=== PATIENT | male | born 1990 | race American Indian/Alaskan Native ===

== ENCOUNTER 2021-02-05 14:57 | Emergency (ER) | payer SELFPAY ==
[2021-02-05 17:51] VITALS: BP 130/70
--- NOTE | 2021-02-05 21:14 | Emergency Department Report ---
ED Abdominal Pain HPI - General Chief Complaint: Abdominal Pain Stated Complaint: ABD PAIN Time Seen by Provider: 02/05/21 20:11 Source: patient Mode of arrival: Ambulatory Limitations: No Limitations - History of Present Illness Initial Comments: Patient 30-year-old -[place] male who presents for left flank pain x1 week. Symptoms described as 5/10 pain sharp achy intermittent, symptoms are exacerbated by movement palpation. Symptoms are relieved by nothing. Patient denies vomiting there is minimal nausea, no fever no chills, patient denies h ematuria frequency urgency or dysuria. Patient is tolerating p.o. intake at this time without vomiting. MD Complaint: flank pain Severity scale (0 -10): 4 - Related Data Previous Rx's Medication Instructions Recorded Last Taken Type Naproxen 500 mg PO BID PRN #30 tablet 02/06/21 Unknown Rx Allergies Allergy/AdvReac Type Severity Reaction Status Date / Time No Known Allergies Allergy Unverified 02/05/21 17:47 ED Review of Systems ROS: Stated complaint: ABD PAIN Other details as noted in HPI Constitutional: denies: chills, fever Eyes: denies: eye pain, eye discharge, vision change ENT: denies: ear pain, throat pain Respiratory: denies: cough, shortness of breath, wheezing Cardiovascular: denies: chest pain, palpitations Endocrine: no symptoms reported Gastrointestinal: abdominal pain, nausea. denies: vomiting, diarrhea, constipation, melena Genitourinary: denies: urgency, dysuria, frequency, hematuria, discharge Musculoskeletal: back pain Skin: denies: rash, lesions Neurological: denies: headache, weakness, paresthesias Psychiatric: denies: anxiety, depression Hematological/Lymphatic: denies: easy bleeding, easy bruising ED Past Medical Hx - Past Medical History Previous Medical History?: No - Surgical History Past Surgical History?: No - Medications Home Medications: Home Medications Medication Instructions Recorded Confirmed Last Taken Type Naproxen 500 mg PO BID PRN #30 tablet 02/06/21 Unknown Rx ED Physical Exam - General Limitations: No Limitations General appearance: alert, in no apparent distress - Head Head exam: Present: atraumatic, normocephalic - Eye Eye exam: Present: normal appearance, EOMI Pupils: Present: normal accommodation - ENT ENT exam: Present: mucous membranes moist - Neck Neck exam: Present: normal inspection, full ROM. Absent: tenderness - Respiratory Respiratory exam: Present: normal lung sounds bilaterally. Absent: respiratory distress, wheezes, stridor, chest wall tenderness - Cardiovascular Cardiovascular Exam: Present: regular rate, normal rhythm, normal heart sounds. Absent: systolic murmur, diastolic murmur, rubs, gallop - GI/Abdominal GI/Abdominal exam: Present: soft, tenderness (left latera flank ), normal bowel sounds. Absent: distended, guarding, rebound, rigid, bruit, hernia - Expanded GI/Abdominal Exam Expanded GI/Abdominal exam: Absent: psoas sign, obturator sign, heel tap sign, Grajeda's sign, Rovsing's sign, tenderness at Mcburney's Point, ascites - Rectal Rectal exam: Present: deferred - Extremities Exam Extremities exam: Present: normal inspection, full ROM. Absent: tenderness - Back Exam Back exam: Present: normal inspection, full ROM, CVA tenderness (L). Absent: vertebral tenderness - Neurological Exam Neurological exam: Present: alert, oriented X3 - Psychiatric Psychiatric exam: Present: normal affect, normal mood - Skin Skin exam: Present: warm, dry, intact, normal color. Absent: rash ED Course Vital Signs 02/05/21 17:48 Temperature 98.4 F Pulse Rate 83 Respiratory 18 Rate Blood Pressure 130/70 [Right] O2 Sat by Pulse 100 Oximetry ED Medical Decision Making - Lab Data Result diagrams: 02/05/21 21:27 02/05/21 21:27 ABDOMEN 1 VIEW, 02/05/2021 INDICATION / CLINICAL INFORMATION: Abdominal pain COMPARISON: None. FINDINGS: TUBES / LINES: None. BOWEL GAS PATTERN: Bowel gas pattern is nonobstructive. ADDITIONAL FINDINGS: No significant additional findings. IMPRESSION: 1. No radiographic evidence of acute intra-abdominal process. Signer Name: Donna Richard MD Signed: 02/05/2021 11:55 PM Workstation Name: [id number] Transcribed By: EB Dictated By: Donna Richard MD Electronically Authenticated By: Donna Richard MD Signed Date/Time: 02/05/212354 DD/ 53 TD/TT: - Radiology Data Radiology results: report reviewed, image reviewed ABDOMEN 1 VIEW, 02/05/2021 INDICATION / CLINICAL INFORMATION: Abdominal pain COMPARISON: None. FINDINGS: TUBES / LINES: None. BOWEL GAS PATTERN: Bowel gas pattern is nonobstructive. ADDITIONAL FINDINGS: No significant additional findings. IMPRESSION: 1. No radiographic evidence of acute intra-abdominal process. Signer Name: Donna Richard MD Signed: 02/05/2021 11:55 PM Workstation Name: [id number] Transcribed By: EB Dictated By: Donna Richard MD Electronically Authenticated By: Donna Richard MD Signed Date/Time: 02/05/212354 DD/ 53 TD/TT: - Medical Decision Making KUB no obstruction normal gas pattern, labs normal, ua normal, pt advises pain improved, plan: dc to home, continue to hydrate, follow up with primary care doctor in 2-3 days. Critical care attestation.: If time is entered above; I have spent that time in minutes in the direct care of this critically ill patient, excluding procedure time. ED Disposition Clinical Impression: Abdominal pain Qualifiers: Abdominal location: left upper quadrant Qualified Code(s): R10.12 - Left upper quadrant pain Disposition: DC-01 TO HOME OR SELFCARE Is pt being admited?: No Does the pt Need Aspirin: No Condition: Stable Instructions: Abdominal Pain, Adult, [id number] Additional Instructions: take medications as prescribed, hydrate as directed, follow up with your doctor in 2-3 days. Prescriptions: Naproxen 500 mg PO BID PRN #30 tablet PRN Reason: pain Referrals: LONG ULLOA MD [Staff Physician] - 3-5 Days Forms: Work/School Release Form(ED) Time of Disposition: 00:33
[2021-02-05 21:38] LABS: Basophils % (Auto) 0.8 % (0.0-1.8); Eosinophils # (Auto) 0.2 K/mm3 (0.0-0.4); Eosinophils % (Auto) 3.1 % (0.0-4.3); Hematocrit 49.4 % (35.5-45.6); Hemoglobin 16.7 gm/dl (11.8-15.2); Lymphocytes # (Auto) 1.5 K/mm3 (1.2-5.4); Lymphocytes % (Auto) 30.7 % (13.4-35.0); Mean Corpuscular HGB Conc 34 % (32-34); Mean Corpuscular Volume 91 fl (84-94); Monocytes # (Auto) 0.3 K/mm3 (0.0-0.8); Monocytes % (Auto) 6.6 % (0.0-7.3); Platelet Count 196 K/mm3 (140-440); Red Blood Count 5.42 M/mm3 (3.65-5.03); Red Cell Distribution Width 13.4 % (13.2-15.2)
[2021-02-05 22:01] LABS: Alanine Aminotransferase 21 units/L (7-56); Albumin 4.7 g/dL (3.9-5); BUN/Creatinine Ratio 11; Blood Urea Nitrogen 11 mg/dL (9-20); Calcium 9.2 mg/dL (8.4-10.2); Hemolysis Index 31
[2021-02-05] MEDS ORDERED: traMADol 50 MG TAB PO ONE (22:33)
[2021-02-05 23:01] LABS: Bilirubin,Urine NEG (Negative); Blood,Urine NEG (Negative); Color,Urine Yellow (Yellow); Mucus,Urine FEW /HPF; Protein,Urine <15 mg/dL mg/dL (Negative); Urobilinogen,Urine < 2.0 mg/dL (<2.0)
--- NOTE | 2021-02-06 | XRay Report ---
ABDOMEN 1 VIEW, 02/05/2021 INDICATION / CLINICAL INFORMATION: Abdominal pain COMPARISON: None. FINDINGS: TUBES / LINES: None. BOWEL GAS PATTERN: Bowel gas pattern is nonobstructive. ADDITIONAL FINDINGS: No significant additional findings. IMPRESSION: 1. No radiographic evidence of acute intra-abdominal process. Signer Name: Donna Richard MD Signed: 02/05/2021 11:55 PM [facility]station Name: [id number]
== END 2021-02-06 00:35 | disposition home or self-care (01) ==
LOC: ED 14:57
DX: R10.12 Left upper quadrant pain (principal); Z79.899 Other long term (current) drug therapy
CPT/HCPCS: 36415; 74018; 80053; 81001; 83690; 85025; 99284